=== PATIENT | male | born 1955 | race Two or more races ===

== ENCOUNTER 2023-01-18 09:57 | Observation (INO) | payer OTHER ==
[~2023-01-18] VITALS: Ht 182.9 cm; Wt 90.7 kg
--- NOTE | 2023-01-18 10:18 | NUR ---
BIBA BLS TO ER BED 8
[2023-01-18 10:23] VITALS: BP 123/88
[2023-01-18] MEDS ORDERED: ALBUTEROL SULFATE/IPRATROPIU 3 ML SOL IH ONE (10:35)
[2023-01-18 11:09] LABS: BASOPHILS % (AUTO) 0.3 % (0.0-2.0); EOSINOPHILS # (AUTO) 0.1 K/uL (0-0.4); EOSINOPHILS % (AUTO) 1.5 % (0.0-4.0); HEMOGLOBIN 12.3 g/dL (12.0-18.0); LYMPHOCYTES # (AUTO) 1.5 K/uL (2.0-11.5); MEAN CORPUSCULAR HEMOGLOBIN 28 pg (27-31); MEAN CORPUSCULAR HGB CONC 33 g/dL (33-37); MEAN CORPUSCULAR VOLUME 85.2 fL (80-94); MONOCYTES # (AUTO) 0.8 K/uL (0.8-1.0); MONOCYTES % (AUTO) 9.5 % (1.7-9.3); NEUTROPHILS # (AUTO) 6.3 K/uL (1.8-7.7); NEUTROPHILS % (AUTO) 71.7 % (42.2-75.2); PLATELET COUNT (AUTO) 222 K/uL (140-450); RED BLOOD CELL COUNT(AUTO) 4.35 MIL/uL (4.20-6.10); RED CELL DISTRIBUTION WIDTH 13.8 % (11.6-13.7); WHITE BLOOD COUNT (AUTO) 8.8 K/uL (4.8-10.8)
--- NOTE | 2023-01-18 11:15 | NUR ---
ABG RESULTS GIVEN TO DR. RAMOS. ABG RESULTS NORMAL BUT PT IS PLACED ON SIMPLE MASK 5L DUE TO BEING HYPOXIC AND NASALCANNULA DOESNT WORK PER PT, DUE TO PT BROKE HIS NOSE 7 TIMES IN PAST.
[2023-01-18 11:38] LABS: ALBUMIN 3.9 g/dL (3.4-5.0); ANION GAP 10.9 (8-16); CARBON DIOXIDE 30.5 mmol/L (21-32); CREATININE 1.1 mg/dL (0.6-1.3); POTASSIUM 4.4 mmol/L (3.5-5.1); TOTAL BILIRUBIN 1.2 mg/dL (0.0-1.0)
[2023-01-18] MEDS ORDERED: methylPREDNISolone SS 125 MG/2 ML VIAL IVP ONE (12:15)
[2023-01-18] MEDS ORDERED: ALBUTEROL 0.083% 2.5 MG/3 ML NEBU INH ONE (12:15)
[2023-01-18] MEDS ORDERED: AZITHROMYCIN 1,000 MG in DEXTROSE 5% 500 ML IV ONE (13:30)
[2023-01-18] MEDS ORDERED: ONDANSETRON 4 MG/2 ML VIAL IVP PRN (13:45)
[2023-01-18] MEDS ORDERED: ZOLPIDEM 5 MG TAB PO PRN (13:45)
[2023-01-18] MEDS ORDERED: LORazepam 1 MG TAB PO PRN (13:45)
[2023-01-18] MEDS ORDERED: KCL 20 MEQ IN 100 mL PREMIX 200 ML IV PRN (13:45)
[2023-01-18] MEDS ORDERED: MAG SULF 2000 MG/WATER PREMIX 50 ML IV PRN (13:45)
[2023-01-18] MEDS ORDERED: ACETAMINOPHEN 325 MG TAB PO PRN (13:45)
[2023-01-18] MEDS ORDERED: POTASSIUM CHLORIDE 10 MEQ TABER PO PRN (13:45)
[2023-01-18] MEDS ORDERED: MORPHINE SULFATE 2 MG/ML SYR IVP STA (13:47)
[2023-01-18] MEDS ORDERED: FAMOTIDINE 20 MG TAB PO ONE (13:50)
[2023-01-18] MEDS ORDERED: AZITHROMYCIN 500 MG in DEXTROSE 5% 250 ML IV SCH (14:00)
[2023-01-18] MEDS: methylPREDNISolone SS 40 MG/ML VIAL IVP SCH ×2 (14:11→21:13)
[2023-01-18] MEDS ORDERED: oxyCODONE/APAP 5/325 MG 1 TAB TAB PO PRN ×2 (14:20)
[2023-01-18] MEDS ORDERED: DULO60EC85 PO (14:40)
[2023-01-18] MEDS ORDERED: METO25TA PO (14:40)
[2023-01-18] MEDS ORDERED: ALPR0.5T20 PO (14:40)
[2023-01-18] MEDS ORDERED: TRAZ-345 PO (14:40)
[2023-01-18] MEDS ORDERED: FAMOTIDINE 20 MG TAB ONE (15:03)
[2023-01-18] MEDS: OSELTAMIVIR PHOSPHATE 75 MG CAP PO SCH ×2 (15:07→21:14)
[2023-01-18] MEDS: LIDOCAINE 5% 1 EA PATCH TP SCH (15:09)
[2023-01-18] MEDS: ENOXAPARIN 40 MG/0.4 ML SYR SUBQ SCH (15:11)
[2023-01-18] MEDS ORDERED: cefTRIAXone 1,000 MG VIAL ONE (15:14)
[2023-01-18] MEDS ORDERED: AZITHROMYCIN 500 MG INJ VIAL IV ONE (16:08)
--- NOTE | 2023-01-18 17:25 | NUR ---
ADMITTED FROM ER VIA [facility]ANE[facility], A & O X4, SPEECH CLEAR, NO C/O PAIN, NO SOB, NOTED, SKIN WARM, DRY, AND INTACT. KEEP COMFORTABLE ON BED. EXPLAINED DIAGNOSIS, PLAN OF CARE, PAIN MANAGEMENT TEACHING, DROPLET PRECAUTION, FALL PRECAUTION, USE OF CALL LIGHT/BED/TV/BATHROOM. VERBALIZED UNDERSTANDING. FALL PRECAUTION APPLIED. CALL LIGHT WITHIN REACH.
[2023-01-18 17:30] VITALS: BP 139/56
--- NOTE | 2023-01-18 17:30 | NUR ---
Patient will be admitted to care of DR RANDALL. Admited to TELE. Will go to room 113. Belongings list completed. Report to BARBARA JONES.
--- NOTE | 2023-01-18 19:26 | NUR ---
REPORT GIVEN TO DAVID MORAES. IN STABLE CONDITION.
[2023-01-18 20:00] VITALS: BP 124/74
[2023-01-18] MEDS: ALBUTEROL SULFATE/IPRATROPIU 3 ML SOL IH SCH (20:02)
[2023-01-18] MEDS: BUDESONIDE 0.5 MG/2 ML NEBU INH SCH (20:16)
[2023-01-18] MEDS: SENNA 8.6 MG TAB PO SCH (21:15)
[2023-01-19] VITALS: BP 115/66
[2023-01-19] MEDS: ALBUTEROL SULFATE/IPRATROPIU 3 ML SOL IH SCH ×2 (00:19→07:31)
[2023-01-19 04:00] VITALS: BP 115/59
[2023-01-19 06:54] LABS: BASOPHILS % (AUTO) 0.1 % (0.0-2.0); HEMATOCRIT 39.2 % (36-52); HEMOGLOBIN 13.1 g/dL (12.0-18.0); LYMPHOCYTES % (AUTO) 8.8 % (20.5-51.1); MEAN CORPUSCULAR HEMOGLOBIN 28 pg (27-31); MEAN CORPUSCULAR HGB CONC 33 g/dL (33-37); MEAN CORPUSCULAR VOLUME 85.3 fL (80-94); MONOCYTES # (AUTO) 0.6 K/uL (0.8-1.0); MONOCYTES % (AUTO) 4.9 % (1.7-9.3); NEUTROPHILS # (AUTO) 10.2 K/uL (1.8-7.7); NEUTROPHILS % (AUTO) 86.2 % (42.2-75.2); PLATELET COUNT (AUTO) 253 K/uL (140-450); RED BLOOD CELL COUNT(AUTO) 4.59 MIL/uL (4.20-6.10); RED CELL DISTRIBUTION WIDTH 14.1 % (11.6-13.7); WHITE BLOOD COUNT (AUTO) 11.8 K/uL (4.8-10.8)
[2023-01-19 07:06] LABS: ANION GAP 12.2 (8-16); CARBON DIOXIDE 30.4 mmol/L (21-32); CREATININE 1.1 mg/dL (0.6-1.3); POTASSIUM 4.6 mmol/L (3.5-5.1)
[2023-01-19] MEDS: BUDESONIDE 0.5 MG/2 ML NEBU INH SCH (07:32)
[2023-01-19 08:00] VITALS: BP 134/62
[2023-01-19 08:52] LABS: MAGNESIUM 1.9 mg/dL (1.8-2.4); PHOSPHORUS 4.1 mg/dL (2.5-4.9)
[2023-01-19] MEDS: methylPREDNISolone SS 40 MG/ML VIAL IVP SCH (08:52)
[2023-01-19] MEDS: ENOXAPARIN 40 MG/0.4 ML SYR SUBQ SCH (08:53)
[2023-01-19] MEDS: SENNA 8.6 MG TAB PO SCH (08:53)
[2023-01-19] MEDS: LIDOCAINE 5% 1 EA PATCH TP SCH (08:54)
[2023-01-19] MEDS: OSELTAMIVIR PHOSPHATE 75 MG CAP PO SCH (08:57)
[2023-01-19] MEDS ORDERED: DOCUSATE SODIUM 100 MG GELCAP PO SCH (09:00)
--- NOTE | 2023-01-19 09:22 | NUR ---
PATIENT HAS BEEN SCREENED AND CATEGORIZED MODERATE NUTRITION RISK. PATIENT WILL BE SEEN WITHIN 3-5 DAYS OF ADMISSION. REVIEWED BY ANDRIY CULVER RD
[2023-01-19] MEDS ORDERED: SENN-74 PO (09:54)
[2023-01-19] MEDS ORDERED: TAM75 PO (09:54)
[2023-01-19] MEDS ORDERED: OXYC-304 PO (09:54)
[2023-01-19] MEDS ORDERED: PRED10TA6 PO (09:54)
== END 2023-01-19 12:24 | disposition home or self-care (01) ==
LOC: MED 09:57 → MTU 13:47
PROVIDERS: ADMIT Internal Medicine; ATTEND Internal Medicine
DX: J44.1 Chronic obstructive pulmonary disease with (acute) exacerbation (principal); Z20.822 Contact with and (suspected) exposure to COVID-19; J10.1 Influenza due to other identified influenza virus with other respiratory manifestations; S22.41XA Multiple fractures of ribs, right side, initial encounter for closed fracture; I10 Essential (primary) hypertension; I25.10 Atherosclerotic heart disease of native coronary artery without angina pectoris; E80.6 Other disorders of bilirubin metabolism; W18.39XA Other fall on same level, initial encounter; Y93.89 Activity, other specified; Y92.89 Other specified places as the place of occurrence of the external cause; Z79.899 Other long term (current) drug therapy
CPT/HCPCS: 36415; 36600; 71045; 71250; 73610; 80048; 80053; 82803; 83735; 83880; 84100; 84484; 85025; 87040; 87081; 87426; 87804; 94640; 94760; 96365; 96367; 96372; 96375; 96376; 99285; G0378; J0456; J0696; J1650; J2920; J2930; J7613; J7626; Q0092; 96366; 96368; J7060